=== PATIENT | male | born 1995 | race Caucasian/White ===

== ENCOUNTER 2019-04-15 20:47 | Emergency (ER) | payer SELFPAY, OTHER ==
[2019-04-15] MEDS: KETOROLAC 30 MG INJ IM (21:52)
[2019-04-15] MEDS: METHOCARBAMOL 750 MG TAB PO (21:52)
== END 2019-04-15 23:00 | disposition home or self-care (01) ==
LOC: FTE 20:47
DX: M54.2 Cervicalgia (principal); R07.0 Pain in throat; V49.50XA Passenger injured in collision with unspecified motor vehicles in traffic accident, initial encounter
CPT/HCPCS: 96372; 99284-25